=== PATIENT | female | born 1990 | race Caucasian/White ===

== ENCOUNTER 2019-08-30 10:36 | Outpatient (CLI) | payer BC, SELFPAY ==
--- NOTE | 2019-08-30 | US_ITS ---
WS: [id number] OBSTETRICAL ULTRASOUND COMPLETE HISTORY: SUPERVISION OF NORMAL IN SECOND TRIMESTER COMPARISON: None available. Single intrauterine gestation in breech presentation. Cervix is Closed and normal length. Cervical length is 5.1 cm. Normal amount of amniotic fluid surrounds the fetus. Placenta: Anterior, placenta very slightly covers the internal cervical os. Placenta grade 1 Heart: 151 BPM. Four chambers are identified. Anatomy: Intracranial structures and spine are normal. kidneys, stomach and urinary bladd er are unremarkable. Abdominal wall, three-vessel cord and cord insertion site are normal. 4 extremities are present. profile: Unremarkable. Gender: Female. measurements: BPD = 4.4 cm = 19w2d HC = 16.0 cm = 18w6d AC = 13.9 cm = 19w2d FL = 2.8 cm = 18w4d EFW: 269 g., Measurements are internally concordant. Visually the amount of amniotic fluid appears increased. AGA by ultrasound: 19 weeks 0 day ALBIN by ultrasound: 01/24/2020 US/US OB >= 14 weeks fetus [id number] IMPRESSION: 1. Single intrauterine gestation of 19 weeks 0 days with an EDC of 01/24/2020. 2. Unremarkable screening survey of anatomy. 3. Visually the amount of amniotic fluid is increased.
== END 2019-08-30 10:37 | disposition home or self-care (01) ==
LOC: RADWPI 13:23
PROVIDERS: Family Provider Family Medicine; Visit Provider Family Medicine
DX: Z76.89 Persons encountering health services in other specified circumstances (principal)

== ENCOUNTER 2020-01-23 07:35 | Inpatient (IN) | payer BC, SELFPAY ==
[2020-01-23] VITALS (68 sets, daily range): BP systolic 0–155; BP diastolic 0–88; PULSE 63–96; RESP 17; TEMP 36.9–37; O2SAT 94–100; BMI 26.5
[2020-01-23 08:30] LABS: Basophils # 0.1 10^3/uL (0.0-0.1); Basophils % 0.8 %; Eosinophils # 0.1 10^3/uL (0.0-0.8); Eosinophils % 1.1 %; Hematocrit 36.1 % (37.0-47.0); Hemoglobin 12.1 g/dL (11.5-15.3); Lymphocytes # 1.6 10^3/uL (0.8-4.8); Lymphocytes % 18.3 %; Mean Corpuscular HGB Conc 33.5 g/dL (30.0-36.0); Mean Corpuscular Hemoglobin 31.3 pg (28.0-34.0); Mean Corpuscular Volume 93.5 fL (81-99); Mean Platelet Volume 11.9 fL (7.4-10.4); Monocytes # 0.8 10^3/uL (0.2-0.9); Monocytes % 9.5 %; Neutrophils # 6.06 10^3/uL (1.8-7.7); Neutrophils % 69.3 %; Nucleated Red Blood Cells % 0 %; Platelet Count 190 10^3/cmm (130-400); Red Blood Count 3.86 10^6/uL (4.1-5.3); Red Cell Distribution Width 12.7 % (12.1-15.1); White Blood Count 8.8 10^3/uL (4.0-10.0)
[2020-01-23] MEDS: ampicillin 2,000 MG in sodium chloride 0.9% (plus) 50 ML 100 MG IV (08:32)
[2020-01-23] MEDS: dextrose 5%-lactated ringers 1,000 ML 125 ML IV (08:32)
[2020-01-23] MEDS: oxytocin 30 UNIT/500 ML BAG IV (09:02)
[2020-01-23] MEDS: lactated ringers 1,000 ML 999 ML IV ×2 (10:58→11:50)
[2020-01-23] MEDS: ondansetron 2 mg/ML SDV 2 mL 4 MG IVP (11:28)
[2020-01-23] MEDS: ampicillin 1,000 MG in sodium chloride 0.9% (plus) 50 ML 100 MG IV (12:01)
--- NOTE | 2020-01-23 12:02 | P.ANESASSM_ITS ---
Pre-Anesthetic Assessment Pre-Anesthetic Assessment: Height/Weight: Height 1.6 m Weight 68.039 kg Temp Pulse Resp BP Pulse Ox 98.5 F 80 17 144/74 97 01/23/20 11:06 01/23/20 12:00 01/23/20 11:06 01/23/20 12:00 01/23/20 12:01 Preop Diagnosis: Labor Pain Proposed Procedure: DILLAN Was Beta Lexy taken within 24 hours: N/A Last Intake: 05:00 Social: Social History: No alcohol and No tobacco Exam: Pre-Anes Outpt Exam: alert, oriented x 3, clear to auscultation bilaterally and regular rate & rhythm Airway: Submandibular: WNL Cervical ROM: WNL MP: 2 Dentition: Full History/ROS: No significant history except as noted and No significant complaints Pulmonary: Pulmonary: None reported CV/HEM: CV/HEM: None reported : : None reported Hepatic: Hepatic: None reported GI: GI: None reported Metabolic: Metabolic: None reported Musc/skel: Musc/skel: None reported Neuropsych: Neuropsych: None reported Anesthetic Plan: ASA status: 2 Anesthesia: Anesthesia Evaluation and Regional (specify below) Other: DILLAN Risk of > 500 ml blood loss (7ml/kg in children): No Meds/Allergies Current Medications: Current Medications Generic Name Dose Route Start Last Admin Trade Name Freq PRN Reason Stop Dose Admin Lactated Ringer's 1,000 mls @ 999 m ls/hr 01/23/20 08:07 01/23/20 11:50 Lactated Ringers IV 999 mls/hr .Q1H1M PRN Administration Per L&D Rescitati on Protocol Ampicillin Sodium 1,000 mg/ 50 mls @ 100 mls/ hr 01/23/20 12:11 01/23/20 12:01 Sodium Chloride IV 100 mls/hr Q4H PARAG Administration Protocol Ampicillin Sodium 2,000 mg/ 50 mls @ 100 mls/ hr 01/23/20 08:15 01/23/20 08:32 Sodium Chloride IV 100 mls/hr ONCE PARAG Administration Protocol Dextrose/Lactated Ringer's 1,000 mls @ 125 m ls/hr 01/23/20 08:15 01/23/20 10:54 Dextrose 5%-Lact ated Ringers IV 0 mls/hr .Q8H PARAG Infusion Oxytocin 30 unit in 500 ml s @ 1 mls/hr 01/23/20 08:45 01/23/20 11:30 Pitocin IV 0 milliunit/min .Q24H PARAG 0 mls/hr Titration Protocol 1 MILLIUNIT/MIN Ondansetron HCl 4 mg 01/23/20 08:07 01/23/20 11:28 Zofran IVP 4 mg Q4H PRN Administration NAUSEA AND VOMITI NG PFSH Anesthesia Female Reproductive History: : 4 Data Anesthesia CBC & Chem 7: 01/23/20 08:00 Other Labs: Laboratory Results - last 48 hr 01/23/20 08:00 WBC 8.8 RBC 3.86 L Hgb 12.1 Hct 36.1 L MCV 93.5 MCH 31.3 MCHC 33.5 RDW 12.7 Plt Count 190 MPV 11.9 H Neut % (Auto) 69.3 Lymph % (Auto) 18.3 [place] % (Auto) 9.5 Eos % (Auto) 1.1 Baso % (Auto) 0.8 Neut # (Auto) 6.06 Lymph # (Auto) 1.6 [place] # (Auto) 0.8 Eos # (Auto) 0.1 Baso # (Auto) 0.1 Nucleated RBC % (auto) 0 Nucleated RBCs # 0.0 Cardiac Studies: No Data to Display
--- NOTE | 2020-01-23 12:05 | ANES.PROC ---
Anesthesia Procedures Procedure/Date: 01/23/20 Epidural: Time Out Performed: Yes Consents Signed: Procedure Consent Consent: requested by attending/covering physician, from patient, risks and benefits reviewed and patient agrees to proceed Lumbar Level: L3-L4 Epidural position: sitting Epidural procedure: sterile prep of area, 1% lidocaine to numb the area, 18 g needle, neg for paresthesia, test dose given, 1.5% xylocaine 1:200k epi, 0.2% Ropivacaine bolus ml, placed PCEA, no systemic response, sterile dressing applied, L.U.D. no apparent complications and 0.2% Ropiavacaine @ mls/hr Additional Comments: [id number]/hour
--- NOTE | 2020-01-23 13:27 | PM.DELIVERY ---
Delivery Note: Date of delivery: January 23, 2020 Pre-delivery diagnoses: IUP at 39 weeks 5 days gestation GBS positive Post-delivery diagnoses: IUP at 39 weeks 5 days delivered via normal spontaneous vaginal delivery GBS positive, status post intrapartum antibiotic prophylaxis Delivering Physician: Georgina Leroy MD Estimated blood loss (mL): 300 Delivery: This is a 29-year-old who was admitted for induction at 39 weeks 5 days gestation. She chose elective induction secondary to being positive for GBS and a history of prior quick deliveries. She was given a dose of ampicillin prior to starting Pitocin. She had spontaneous rupture of membranes with clear fluid. She received a second dose of ampicillin prior to delivery. She had a normal spontaneous vaginal delivery of a viable female infant weight 8 pounds 15 ounces Apgars 9 and 10 over an intact perineum. The infant was suctioned at delivery and placed on the mother's chest. The cord was clamped and cut. The placenta was delivered grossly intact and normal to inspection. The patient had a second-degree perineal laceration. Additionally the patient had a quarter size cyst just inside the labia minora. This partially ruptured and partially drained upon delivery. There was semisolid white to milky exudate. The entire cystic capsule was excised prior to repair of her laceration. The laceration was then repaired using 3-0 chromic in a running fashion. Mother and were doing well after delivery. Coding Level of Care Code Acute [employer] Electrical Person for Bc Alvarado
[2020-01-23] MEDS: lanolin oint 7 gm 1 APPLIC TOPICAL (15:30)
[2020-01-23] MEDS: benzocaine-menthol 78 gm Canister 1 SPRAY TOPICAL (15:31)
[2020-01-23] MEDS: docusate sodium 100 mg Capsule PO (18:11)
[2020-01-24 02:23] LABS: Hematocrit 27.8 % (37.0-47.0); Hemoglobin 9.3 g/dL (11.5-15.3); Mean Corpuscular HGB Conc 33.5 g/dL (30.0-36.0); Mean Corpuscular Hemoglobin 32.2 pg (28.0-34.0); Mean Corpuscular Volume 96.2 fL (81-99); Mean Platelet Volume 11.3 fL (7.4-10.4); Platelet Count 165 10^3/cmm (130-400); Red Blood Count 2.89 10^6/uL (4.1-5.3); Red Cell Distribution Width 12.7 % (12.1-15.1); White Blood Count 12.1 10^3/uL (4.0-10.0)
[2020-01-24 05:34] VITALS: BP 103/62; PULSE 72; RESP 18; TEMP 36.9
[2020-01-24] MEDS: acetaminophen 325 mg Tablet 650 MG PO (06:30)
[2020-01-24] MEDS: docusate sodium 100 mg Capsule PO (08:30)
[2020-01-24] MEDS: prenatal vitamin Capsule 1 CAP PO (08:30)
[2020-01-24 10:27] VITALS: BP 109/71; PULSE 60; RESP 16; TEMP 36.9
[2020-01-24 16:56] VITALS: BP 124/75; PULSE 69; TEMP 36.9
--- NOTE | 2020-01-24 18:09 | P.DS_ITS ---
Discharge Providers VBA PROGRAMMER Date of Admission: 01/23/20 07:35 Date of Discharge: 01/24/20 Attending Provider at Admission: Georgina Leroy MD Attending Provider at Discharge: Georgina Leroy MD Diagnoses at Discharge Discharge Diagnosis (1) Spontaneous vaginal delivery: Status: Acute (2) Sebaceous cyst of labia: Status: Acute Problem details: Removed while patient's epidural was in place and prior to repair of second- degree perineal laceration. Reason for Visit Reason for Visit: term , induction of labor Hospital Course Discharge Summary: This is a 29-year-old G4 now P3 who was admitted for an induction secondary to GBS positive status. She was 39 weeks 5 days gestation. She had a normal spontaneous vaginal delivery of a viable female weight 8 pounds 15 ounces Apgars 9 and 10. Mother had a rather large labial sebaceous cyst that was excised immediately following delivery and prior to repair of her second-degree perineal laceration. Mother and infant did well after delivery. She was ambulating, tolerating a regular diet, had decreased vaginal bleeding and was requesting discharge home. Information Peripartum Data: Delivery Method: Vaginal Physical Exam Const: COMMON NORMALS: no acute distress and healthy appearing GENERAL APPEARANCE: cooperative and comfortable Chest: COMMONS NORMALS: normal inspection of the chest Resp: COMMON NORMALS: normal respiratory effort and clear to auscultation bilaterally; negative for No retractions and negative for No use of accessory muscles AUSCULTATION: clear to auscultation bilaterally Cardio: COMMON NORMALS: regular rate and regular rhythm RATE: regular rate RHYTHM: regular rhythm Extremity: COMMON NORMALS: no calf tenderness and no pedal edema Psych: COMMON NORMALS: mental status grossly normal Discharge Data Data Completed and Pending: Labs from last 24 hours 01/24/20 02:15 WBC 12.1 H RBC 2.89 L Hgb 9.3 L Hct 27.8 L MCV 96.2 MCH 32.2 MCHC 33.5 RDW 12.7 Plt Count 165 MPV 11.3 H Vitals: Last Vital Signs Temp 98.5 F 01/24/20 16:56 Pulse 69 01/24/20 16:56 Resp 16 01/24/20 10:27 BP 124/75 01/24/20 16:56 Pulse Ox 100 01/23/20 12:36 Discharge Plan Discharge Patient Disposition: Home, Self-Care Condition: Stable Prescriptions: Continued Vitamin 27 mg iron- 800 mcg Tablet 1 tab PO DAILY RF: 0 Discharge Orders: Discharge Order (Routine); Ordered 01/24/20 Ordered By: Georgina Leroy Referrals: Georgina Leroy MD [Family Provider] - 1 month (4 WEEKS) Discharge Diet: Usual diet Discharge Activity: Limit activity as instructed Patient Instructions: Your Baby (GEN), Expression, Collection and Storage of Breastmilk (GEN), How to Hold and Breastfeed Your Baby (GEN), Sadaf stfeeding and Nipple Soreness (GEN), Breast Fullness Versus Breast Engorgement (GEN), and Plugged Ducts (GEN), How to Increase Your Milk Supply (GEN), and Your Diet (GEN), Breast Care for the Breast Feeding Mother (GEN), Vaginal Delivery (GEN), OB Discharge Report, OB Food/Drug Interaction Guide Discharge Attestations VBA PROGRAMMER Time Spent in Discharge Care*: less than 30 min Coding Level of Care Code Acute Mixer Tender for Chg Fwd Diagnoses Spontaneous vaginal delivery O80 Sebaceous cyst of labia N90.7
[2020-01-24 18:31] VITALS: BP 114/71; PULSE 76; RESP 16; TEMP 36.7; O2SAT 96
== END 2020-01-24 18:55 | disposition home or self-care (01) | DRG 807 ==
PROVIDERS: Admitting Provider Family Medicine; Family Provider Family Medicine; Visit Provider Family Medicine
DX: O99.824 Streptococcus B carrier state complicating childbirth (principal); Z37.0 Single live birth; O70.1 Second degree perineal laceration during delivery; Z3A.39 39 weeks gestation of pregnancy; O34.83 Maternal care for other abnormalities of pelvic organs, third trimester; N94.89 Other specified conditions associated with female genital organs and menstrual cycle
CPT/HCPCS: 12345; 36415; 51702; 59025; 59409; 83986; 85025; 85027; 96374; 96375; J0290; J2405; J2795; J3010

== ENCOUNTER 2022-01-20 05:05 | Inpatient (IN) | payer BC, SELFPAY ==
[2022-01-20] VITALS (66 sets, daily range): BP systolic 103–138; BP diastolic 56–82; PULSE 58–94; RESP 16–18; TEMP 36.1–36.8; O2SAT 92–100; BMI 27.8
[2022-01-20 02:33] LABS: Basophils # 0.1 10^3/uL (0.0-0.1); Basophils % 0.7 %; Eosinophils # 0.1 10^3/uL (0.0-0.8); Eosinophils % 1.7 %; Hematocrit 34.6 % (37.0-47.0); Hemoglobin 12.3 g/dL (11.5-15.3); Lymphocytes # 1.5 10^3/uL (0.8-4.8); Lymphocytes % 18.2 %; Mean Corpuscular HGB Conc 35.5 g/dL (30.0-36.0); Mean Corpuscular Hemoglobin 31.9 pg (28.0-34.0); Mean Corpuscular Volume 89.6 fl (81-99); Mean Platelet Volume 11.6 fL (7.4-10.4); Monocytes # 0.8 10^3/uL (0.2-0.9); Monocytes % 10.1 %; Neutrophils # 5.65 10^3/uL (1.8-7.7); Neutrophils % 68.3 %; Nucleated Red Blood Cells % 0 %; Platelet Count 194 10^3/cmm (130-400); Red Blood Count 3.86 10^6/uL (4.1-5.3); Red Cell Distribution Width 12.6 % (12.1-15.1); White Blood Count 8.3 10^3/uL (4.0-10.0)
[2022-01-20] MEDS: lactated ringers 1,000 ML 999 ML IV (05:34)
[2022-01-20] MEDS: ondansetron 2 mg/ML SDV 2 mL 4 MG IVP (05:34)
[2022-01-20] MEDS: dextrose 5%-lactated ringers 1,000 ML 125 ML IV (06:33)
[2022-01-20] MEDS: oxytocin 30 UNIT/500 ML BAG 600 UNIT IV (07:39)
[2022-01-20] MEDS: docusate sodium 100 mg Capsule PO (09:41)
[2022-01-20] MEDS: benzocaine-menthol 78 gm Canister 1 SPRAY TOPICAL (09:41)
[2022-01-20] MEDS: ibuprofen 800 mg tablet PO ×3 (09:41→21:15)
[2022-01-20] MEDS: prenatal vitamin Capsule 1 CAP PO (09:41)
[2022-01-20] MEDS: lanolin oint 7 gm 1 APPLIC TOPICAL (09:41)
--- NOTE | 2022-01-20 09:45 | PC.NURSE ---
pt up to bathroom without difficulty. void 300mL. rich care performed by pt. gown and pad changed. linens changed. pt back to bed and resting comfortably
--- NOTE | 2022-01-20 17:16 | PM.OPHPUD ---
Labor & Delivery H&P Update Date of Procedure: January 20, 2022 Date H&P Performed: 01/16/22 Admission Diagnosis: Preop diagnosis: Labor Pain Planned procedure: expectant management
--- NOTE | 2022-01-20 17:46 | PM.DELIVERY ---
Delivery Note: Date of delivery: January 20, 2022 Pre-delivery diagnoses: IUP at 38-week 6 days gestation with spontaneous rupture of membranes Procedure: Normal spontaneous vaginal delivery Estimated blood loss (mL): 300 Pre-Delivery Course: The patient had routine care at [facility]. The was complicated by polyhydramnios. She is blood type a positive antibody negative, rubella immune, RPR nonreactive, hepatitis B surface antigen nonreactive, hepatitis C antibody nonreactive, HIV nonreactive, GC chlamydia negative, UDS negative, glucose tolerance test 131, GBS negative. Delivery: This is a 31-year-old G5, P3 at 38 weeks 6 days gestation who presented to labor and delivery with spontaneous rupture of membranes. She had a copious amount of clear fluid. She was noted to be GBS negative. She did receive an epidural for pain management. She had a normal spontaneous vaginal delivery of a viable male infant weight 7 pounds 15 ounces, Apgars 8 and 9 over an intact perineum. The was suctioned at delivery and placed on the mother's chest. The cord was clamped and cut. The placenta was delivered grossly intact and normal to inspection. There was a first-degree perineal laceration that was sutured using 3-0 chromic. Mother and were doing well after delivery. Coding Level of Care Code Acute [employer] Cord for Bc Alvarado
[2022-01-20 20:15] LABS: Hematocrit 30.8 % (37.0-47.0); Mean Corpuscular HGB Conc 35.7 g/dL (30.0-36.0); Mean Corpuscular Hemoglobin 32.2 pg (28.0-34.0); Mean Corpuscular Volume 90.1 fl (81-99); Mean Platelet Volume 11.5 fL (7.4-10.4); Platelet Count 178 10^3/cmm (130-400); Red Blood Count 3.42 10^6/uL (4.1-5.3); Red Cell Distribution Width 12.5 % (12.1-15.1); White Blood Count 13.1 10^3/uL (4.0-10.0)
[2022-01-21 05:19] VITALS: BP 124/70; PULSE 70; RESP 18
[2022-01-21] MEDS: docusate sodium 100 mg Capsule PO (08:22)
[2022-01-21] MEDS: ibuprofen 800 mg tablet PO (08:22)
[2022-01-21] MEDS: prenatal vitamin Capsule 1 CAP PO (08:22)
[2022-01-21] MEDS: lanolin oint 7 gm 1 APPLIC TOPICAL (08:22)
[2022-01-21 08:25] VITALS: BP 108/58; PULSE 65; RESP 16; TEMP 36.6; O2SAT 99
--- NOTE | 2022-01-21 12:58 | PM.DCS ---
Discharge Providers Date of Admission: 01/20/22 05:05 Date of Discharge: January 21, 2022 Attending Provider at Admission: Georgina Leroy MD Attending Provider at Discharge: Georgina Leroy MD Reason for Visit Reason for Visit: ROM @ 0045 Hospital Course Hospital Course This is a 31-year-old G5 now P4 who was admitted in active labor. She had a normal spontaneous vaginal delivery of a viable male . Mother and infant did well after delivery. On day #1 she was ambulating, tolerating a regular diet, had decreased vaginal bleeding and was requesting discharge home. Physical Exam Narrative: Alert and oriented, no acute distress, sitting in bedside couch, abdomen is soft and nontender, fundus is firm and U- 2, extremities have no calf tenderness and no edema. Urinary Catheter Management: Fong: Cath Placed During This Visit: yes, but has since been removed by the nurse Reason for Continuing Indwelling Catheter: Decision to DC Catheter Urinary Catheter Date of Insertion: 01/20/22 Urinary Catheter Time of Insertion: 06:45 Date Urinary Catheter Removed: 01/20/22 Time Urinary Catheter Discontinued: 07:30 Discharge Data Studies Completed and Pending Laboratory Results WBC 13.1 10^3/uL (4.0-10.0) H 01/20/22 19:55 RBC 3.42 10^6/uL (4.1-5.3) L 01/20/22 19:55 Hgb 11.0 g/dL (11.5-15.3) L 01/20/22 19:55 Hct 30.8 % (37.0-47.0) L 01/20/22 19:55 MCV 90.1 fl (81-99) 01/20/22 19:55 MCH 32.2 pg (28.0-34.0) 01/20/22 19:55 MCHC 35.7 g/dL (30.0-36.0) 01/20/22 19:55 RDW 12.5 % (12.1-15.1) 01/20/22 19:55 Plt Count 178 10^3/cmm (130-400) 01/20/22 19:55 MPV 11.5 fL (7.4-10.4) H 01/20/22 19:55 Neut % (Auto) 68.3 % 01/20/22 02:19 Lymph % (Auto) 18.2 % 01/20/22 02:19 [place] % (Auto) 10.1 % 01/20/22 02:19 Eos % (Auto) 1.7 % 01/20/22 02:19 Baso % (Auto) 0.7 % 01/20/22 02:19 Neut # (Auto) 5.65 10^3/uL (1.8-7.7) 01/20/22 02:19 Lymph # (Auto) 1.5 10^3/uL (0.8-4.8) 01/20/22 02:19 [place] # (Auto) 0.8 10^3/uL (0.2-0.9) 01/20/22 02:19 Eos # (Auto) 0.1 10^3/uL (0.0-0.8) 01/20/22 02:19 Baso # (Auto) 0.1 10^3/uL (0.0-0.1) 01/20/22 02:19 Nucleated RBC % (auto) 0 % 01/20/22 02:19 Nucleated RBCs # 0.0 /100WBC 01/20/22 02:19 Vitals Last Vital Signs Temp 97.8 F 01/21/22 08:25 Pulse 65 01/21/22 08:25 Resp 16 01/21/22 08:25 BP 108/58 01/21/22 08:25 Pulse Ox 99 01/21/22 08:25 Discharge Plan Discharge Patient Disposition: Home Condition: Stable Prescriptions: Continued Vitamin 27 mg iron- 800 mcg Tablet 1 tab PO DAILY 0RF Discharge Orders: Discharge Order (Routine); Ordered 01/21/22 Ordered By: Georgina Leroy Referrals: Georgina Leroy MD [Physician] - 1 month Discharge Diet: Usual diet Discharge Activity: Limit activity as instructed Patient Instructions: Depression (DC), Expression, Collection and Storage of Breast Milk (DC), Bleeding (DC), Preeclampsia and Eclampsia After Delivery (GEN), OB Discharge Report, OB Food/Drug Interaction Guide, Opioid Safety, OB Home Care, OB Vaginal Deliveries Activity Restrictions/Additional Instructions: Nothing per vagina for 6 weeks Discharge Attestations Time Spent in Discharge Care*: less than 30 min Quality Metrics Clinical Quality Measures [ No reported AMI, CVA or VTE this stay] Coding Level of Care Code Acute Chg FW DC note
[2022-01-21 15:30] VITALS: BP 128/78; PULSE 64; RESP 17; TEMP 36.8; O2SAT 98
[2022-01-21 15:45] VITALS: BP 128/78; PULSE 64; RESP 17; TEMP 36.8; O2SAT 98
== END 2022-01-21 15:45 | disposition home or self-care (01) | DRG 807 ==
LOC: OPOB 05:05 → OBGYN 05:05
PROVIDERS: Admitting Provider Family Medicine; Visit Provider Family Medicine
DX: O40.3XX0 Polyhydramnios, third trimester, not applicable or unspecified (principal); Z37.0 Single live birth; O70.0 First degree perineal laceration during delivery; Z87.891 Personal history of nicotine dependence; Z3A.38 38 weeks gestation of pregnancy
CPT/HCPCS: 36415; 51702; 59025; 59409; 83986; 85025; 85027; 96374; 99211; J2405; J2795

== ENCOUNTER 2023-06-29 09:20 | Emergency (ER) | payer BC, SELFPAY ==
[2023-06-29 09:28] VITALS: BP 147/88; PULSE 96; RESP 16; TEMP 36.8; O2SAT 100; BMI 22.6
--- NOTE | 2023-06-29 09:37 | ECG_ITS ---
[facility] Test Date: 2023-06-29 Pat Name: Audelia Arrieta Department: Room: Gender: Female Bus And Rail Operator: : 1990 Requested By: Cleveland Vera Order Number: [id number] Cornelio MD: Jefferson Veloz M.D. Measurements Intervals [place] Rate: 82 P: 66 KS: 131 QRS: 113 QRSD: 93 T: -4 QT: 346 QTc: 405 Interpretive Statements SINUS RHYTHM WITH OCCASIONAL VENTRICULAR PREMATURE COMPLEXES LEFT ATRIAL ENLARGEMENT [-0.15mV P-WAVE IN V1/V2] INDETERMINATE AXIS INCOMPLETE RIGHT BUNDLE BRANCH BLOCK [90+ ms QRS DURATION, TERMINAL R IN V1/V2, 40+ ms S IN I/aVL/V4/V5/V6] LEFT POSTERIOR FASCICULAR BLOCK [QRS AXIS > 109, INFERIOR Q] MODERATE ST DEPRESSION [0.05+ mV ST DEPRESSION] ABNORMAL QRS-T ANGLE [QRS-T AXIS DIFFERENCE > 60] No previous ECG available for comparison Electronically Signed On 06-29-2023 22:59:58 RN TRAVELING by Jefferson Veloz M.D. [id number]
--- NOTE | 2023-06-29 09:54 | ED_ITS ---
HPI - Arrhythmia/Palpitations 2 General: Chief Complaint: Arrhythmia/Palpitations Stated Complaint: heart palpitations Time Seen by Provider: 06/29/23 09:22 Source: patient Mode of arrival: ambulatory History of Present Illness: 33-year-old female palpitations for 1 wk . does not have any associated chest pain or shortness of breath. No known history of any previous cardiac issues no history of the any PEs or DVTs. Patient does not believe she is she has not recently been ill. MD complaint: skipped beats Onset (ago): week(s) (1) Duration: constant Severity: mild Associated symptoms: Deny anxiety, cough, diaphoresis, muscle cramps, nausea, paresthesias, pre-syncope, sense of impending doom, short of breath, syncope or vomiting Review of Systems 2 Const: Denies: fever(s), chills or diaphoresis Card: Reports: palpitations; Denies: chest pain, edema, swelling of feet/ankles, syncope or pre-syncope Resp: Denies: dyspnea GI: Denies: abdominal pain, nausea or vomiting : Reports: flank pain; Denies: dysuria, urinary frequency or urinary urgency Musc: Denies: neck pain, back pain or muscle cramps Skin/Breast: Denies: rash Psych: Denies: anxiety Physical Exam 2 Const: COMMON NORMALS: no acute distress GENERAL APPEARANCE: cooperative and comfortable ORIENTATION/CONSCIOUSNESS: Yes awake, Yes oriented to person, Yes oriented to place and Yes oriented to time HENMT: COMMON NORMALS: normocephalic, atraumatic and hearing grossly normal bilaterally HEAD & SCALP: normocephalic and atraumatic Resp: COMMON NORMALS: normal respiratory effort, No retractions, No use of accessory muscles and clear to auscultation bilaterally AUSCULTATION: clear to auscultation bilaterally Cardio: COMMON NORMALS: regular rate, regular rhythm and No murmurs present (Cardio) RATE: regular rate RHYTHM: regular rhythm GI: COMMON NORMALS: Soft to palpation and No hepatosplenomegaly present A USCULTATION: Yes normoactive bowel sounds PALPATION: Yes Soft to palpation, No Tenderness to palpation present (GI), No Guarding due to palpation present (GI) and Yes No hepatosplenomegaly present Extremity: COMMON NORMALS: normal to inspection, capillary refill normal, no clubbing, cyanosis or edema, no calf tenderness and no pedal edema Neuro: SENSORIUM/ORIENTATION: Yes oriented to person, Yes oriented to place and Yes oriented to time Skin: COMMON NORMALS: no rashes or lesions noted GENERAL SKIN EXAM: no rashes or lesions noted Course 2 Vital Signs: Vital signs: Vital Signs Temperature 98.2 F 06/29/23 09:28 Pulse Rate 66 06/29/23 10:32 Respiratory Rate 17 06/29/23 10:32 Blood Pressure 147/88 06/29/23 10:32 Pulse Oximetry 97 06/29/23 10:32 Oxygen Delivery Me thod Room Air 06/29/23 10:32 MDM - Arrhythmia/Palpitations Medical Decision Making EKG shows PVCs no other acute changes no acute ST changes patient not having any chest pain or discomfort at this time multiple PVCs noted on the monitoring. Blood pressure is also slightly elevated will start patient on Toprol XL 12.5 mg once daily follow-up with primary care doctor within the next week. Medical Records I reviewed the patient's medical records. Lab Data I reviewed the patient's lab results. 06/29/23 09:54 06/29/23 09:54 Laboratory Results WBC 6.42 10^3/uL (3.29-11.43) 06/29/23 09:54 RBC 4.32 10^6/uL (3.85-5.65) 06/29/23 09:54 Hgb 13.10 g/dL (11.27-16.99) 06/29/23 09:54 Hct 39.5 % (36-47) 06/29/23 09:54 MCV 91.4 fl (85-98) 06/29/23 09:54 MCH 30.3 pg (27-33) 06/29/23 09:54 MCHC 33.2 g/dL (30-55) 06/29/23 09:54 RDW 12.2 % (12.1-15.1) 06/29/23 09:54 Plt Count 271 10^3/cmm (157-399) 06/29/23 09:54 MPV 10.1 fL (7.4-10.4) 06/29/23 09:54 Neut % (Auto) 76.4 % 06/29/23 09:54 Lymph % (Auto) 15.3 % 06/29/23 09:54 [place] % (Auto) 6.5 % 06/29/23 09:54 Eos % (Auto) 0.6 % 06/29/23 09:54 Baso % (Auto) 0.9 % 06/29/23 09:54 Neut # (Auto) 4.90 10^3/uL (1.8-7.7) 06/29/23 09:54 Lymph # (Auto) 1.0 10^3/uL (0.8-4.8) 06/29/23 09:54 [place] # (Auto) 0.4 10^3/uL (0.2-0.9) 06/29/23 09:54 Eos # (Auto) 0.0 10^3/uL (0.0-0.8) 06/29/23 09:54 Baso # (Auto) 0.1 10^3/uL (0.0-0.1) 06/29/23 09:54 Nucleated RBC % (auto) 0 % 06/29/23 09:54 Nucleated RBCs # 0.0 /100WBC 06/29/23 09:54 Sodium 139 mmol/L (136-145) 06/29/23 09:54 Potassium 4.1 mmol/L (3.5-5.1) 06/29/23 09:54 Chloride 105 mmol/L (98-107) 06/29/23 09:54 Carbon Dioxide 22 mmol/L (22-29) 06/29/23 09:54 Anion Gap 16.1 (5-19) 06/29/23 09:54 BUN 8 mg/dL (6-20) 06/29/23 09:54 Creatinine 0.6 mg/dL (0.5-0.9) 06/29/23 09:54 GFR Calculation 114.4 mL/min (90-130) 06/29/23 09:54 Glucose 97 mg/dL (65-115) 06/29/23 09:54 Calculated Osmolality 286 mOsm/kg (285-295) 06/29/23 09:54 Calcium 9.2 mg/dL (8.5-10.5) 06/29/23 09:54 Total Bilirubin 0.8 mg/dL (0.15-1.2) 06/29/23 09:54 AST 15 U/L (0-32) 06/29/23 09:54 ALT 12 U/L (0-33) 06/29/23 09:54 Alkaline Phosphatase 54 U/L (35-105) 06/29/23 09:54 Total Protein 7.1 g/dL (6.6-8.7) 06/29/23 09:54 Albumin 4.4 g/dL (3.5-5.2) 06/29/23 09:54 Globulin 2.7 g/dL (1.3-4.6) 06/29/23 09:54 HCG, Qual Negative (Negative) 06/29/23 09:54 Urine Color Yellow (Yellow) 06/29/23 10:24 Urine Appearance Clear (CLEAR) 06/29/23 10:24 Urine pH 7 (5-7) 06/29/23 10:24 Ur Specific [place] 1.000 (1.005-1.030) L 06/29/23 10:24 Urine Protein Neg (Negative) 06/29/23 10:24 Urine Glucose (UA) Norm (Normal) 06/29/23 10:24 Urine Ketones Negative (Negative) 06/29/23 10:24 Urine Blood Neg (Negative) 06/29/23 10:24 Urine Nitrate Negative (Negative) 06/29/23 10:24 Urine Bilirubin Neg (Negative) 06/29/23 10:24 Urine Urobilinogen Neg mg/dL (Negative) 06/29/23 10:24 Ur Leukocyte Esterase Negative (Negative) 06/29/23 10:24 No radiology studies performed this visit Discharge Plan Discharge Patient Disposition: Home Clinical Impression: Ventricular premature beats, Hypertension Condition: Stable Prescriptions: New Toprol XL 25 mg tablet extended release 24 hr 12.5 mg PO DAILY Qty: 30 0RF No Action Vitamin 27 mg iron- 800 mcg Tablet 1 tab PO DAILY Discharge Orders: Discharge ED (Routine); Ordered 06/29/23 Ordered By: Cleveland Monterroso Referrals: Georgina Leroy MD [Primary Care Provider] - Discharge Diet: Usual diet Discharge Activity: Increase activity as tolerated Patient Instructions: Premature Ventricular Contractions (ED), Opioid Safety, Pain Management Activity Restrictions/Additional Instructions: Thank you for choosing [facility] for your healthcare needs today. Please realize this is an emergency room and that we are providing you with a medical screening exam and this may not be complete and all inclusive of all the testing and or work up that you may need to determine your ailment or severity of your illness. It is very important that you follow up as instructed or that you return to the Emergency Department should you have concerns or if your condition changes or worsens in any way. You are seen today for palpitations. Rhythm strip and EKG shows PVCs these are generally benign. Your blood pressure is also mildly elevated. Recommend to start Toprol-XL 12 and half milligrams once daily this will help cut down on the number of PVCs will also help control your blood pressure follow-up with primary care doctor within the next 2 weeks Coding Level of Care Code ED Manager Quantitative for cB Alvarado
[2023-06-29 10:01] LABS: Basophils # 0.1 10^3/uL (0.0-0.1); Basophils % 0.9 %; Eosinophils % 0.6 %; Hematocrit 39.5 % (36-47); Lymphocytes % 15.3 %; Mean Corpuscular HGB Conc 33.2 g/dL (30-55); Mean Corpuscular Hemoglobin 30.3 pg (27-33); Mean Corpuscular Volume 91.4 fl (85-98); Mean Platelet Volume 10.1 fL (7.4-10.4); Monocytes # 0.4 10^3/uL (0.2-0.9); Monocytes % 6.5 %; Neutrophils % 76.4 %; Nucleated Red Blood Cells % 0 %; Platelet Count 271 10^3/cmm (157-399); Red Blood Count 4.32 10^6/uL (3.85-5.65); Red Cell Distribution Width 12.2 % (12.1-15.1); White Blood Count 6.42 10^3/uL (3.29-11.43)
[2023-06-29 10:20] LABS: HCG, Serum Qual Negative (Negative)
[2023-06-29 10:23] LABS: Alanine Aminotransferase 12 U/L (0-33); Albumin Level 4.4 g/dL (3.5-5.2); Alkaline Phosphatase 54 U/L (35-105); Anion Gap 16.1 (5-19); Aspartate Amino Transferase 15 U/L (0-32); Blood Urea Nitrogen 8 mg/dL (6-20); Calcium 9.2 mg/dL (8.5-10.5); Carbon Dioxide 22 mmol/L (22-29); Chloride 105 mmol/L (98-107); Globulin 2.7 g/dL (1.3-4.6); Glomerular Filtration Rate 114.4 mL/min (90-130); Glucose 97 mg/dL (65-115); Osmolality Calculated 286 mOsm/kg (285-295); Potassium 4.1 mmol/L (3.5-5.1); Sodium 139 mmol/L (136-145); Total Bilirubin 0.8 mg/dL (0.15-1.2); Total Protein 7.1 g/dL (6.6-8.7)
[2023-06-29 10:32] VITALS: BP 147/88; PULSE 66; RESP 17; O2SAT 97
[2023-06-29 10:45] LABS: Add Urine Microscopic? NO; Charge for UA Resulting for Rev
[2023-06-29 10:47] LABS: Bilirubin Urine Neg (Negative); Blood Urine Neg (Negative); Glucose Urine UA Norm (Normal); Ketones Urine Negative (Negative); Leukocyte Esterase Urine Negative (Negative); Nitrate Urine Negative (Negative); Protein Urine Neg (Negative); Urine Appearance Clear (CLEAR); Urine Color Yellow (Yellow); Urobilinogen Urine Neg (Negative); pH Urine 7 (5-7)
[2023-06-29] MEDS: metoprolol succinate ER (24 HR) 25 mg Tablet 12.5 MG PO (11:05)
== END 2023-06-29 11:11 | disposition home or self-care (01) ==
PROVIDERS: Emergency Provider Family Medicine; PCP Family Medicine
DX: I49.3 Ventricular premature depolarization (principal); I10 Essential (primary) hypertension
CPT/HCPCS: 36415; 80053; 81003; 84703; 85025; 93005; 99285

== ENCOUNTER → 2023-09-16 12:55 | Outpatient (BNVA) | payer BC, SELFPAY | PROVIDERS: PCP Family Medicine; Referring Provider Family Medicine; Visit Provider Internal Medicine | DX: R07.9 Chest pain, unspecified (principal); I45.10 Unspecified right bundle-branch block; R00.1 Bradycardia, unspecified | CPT/HCPCS: 93005 ==

== ENCOUNTER 2023-09-23 08:43 | Outpatient (CLI) | payer BC, SELFPAY ==
--- NOTE | 2023-09-23 09:00 | USCV_ITS ---
Berny Audelia Age: 33 Gender: F : 1990 Exam Date: 09/23/2023 09:17 Ordering Phys: Jefferson Veloz M.D ([email or web address]) Technologist: [place] [facility] [place]: cp BP: 120 / 82 HR: 69 Rhythm: Sinus Technical Quality: Adequate MEASUREMENTS (Male / Female) Normal Values 2D ECHO LVOT Diameter 2.0 cm LV Ejection Fraction MOD 2C 53.1 % LV Ejection Fraction 2C AL 52.9 % LA Diameter 1.8 cm Aorta at Sinotubular Diameter 2.3 cm IVC Diameter 1.6 cm M-MODE LA Ao Ratio MM 1.2 AV Cusp Separation MM 1.7 cm DOPPLER AV Peak Velocity 115.0 cm/s LVOT Peak Velocity 86.0 cm/s AV Area Cont Eq vti 2.7 cm squared AV Area Cont Eq pk 2.3 cm squared MV Peak Velocity 95.0 cm/s MV Area PHT 3.0 cm squared Mitral E to A Ratio 1.9 TV Peak E Velocity 88.0 cm/s Right Atrial Pressure 3.0 mmHg PV Peak Velocity 101.0 cm/s FINDINGS Left Ventricle Left ventricle is normal in size. LV systolic function is borderline normal with EF of 50 to 55%. No regional wall motion abnormalities are seen. Right Ventricle Normal in size and function Right Atrium Normal in size Left Atrium Normal in size Mitral Valve Structurally normal mitral valve. Trace mitral regurgitation. Aortic Valve Structurally normal aortic valve. No significant stenosis Tricuspid Valve Mild tricuspid regurgitation. Insufficient TR jet to calculate RVSP. Pulmonic Valve Not well visualized Pericardium Normal Aorta Normal in size IVC Appears to be normal CONCLUSIONS LV systolic function is borderline normal with EF of 50-55% Trace mitral regurgitation Mild tricuspid regurgitation No comparison studies are available Jefferson Veloz MD (Electronically Signed) Final Date: 04 October 2023 12:05 S
== END 2023-09-23 08:44 | disposition home or self-care (01) ==
LOC: RAD 08:44
PROVIDERS: PCP Family Medicine; Visit Provider Internal Medicine
DX: I07.1 Rheumatic tricuspid insufficiency (principal); R07.9 Chest pain, unspecified
CPT/HCPCS: 93306

== ENCOUNTER 2024-12-20 09:25 | Outpatient (CLI) | payer BC, SELFPAY ==
--- NOTE | 2024-12-20 | MM_ITS ---
WS: [id number] BILATERAL 3D TOMOSYNTHESIS DIGITAL SCREENING MAMMOGRAM WITH CAD CLINICAL INFORMATION: ANNUAL SCREENING HISTORY: Screening mammogram. No current complaints. COMPARISON: 2016 TECHNIQUE: Bilateral CC and MLO. FINDINGS: The breast are composed of extremely dense tissue, which can limit the detection of small underlying mass lesions. No suspicious focal mass, asymmetry, calcifications, or architectural distortion. No evidence of malignancy. MM/MM scr tomosynthesis [id number] IMPRESSION: DENSITY: The breasts are extremely dense, which lowers the sensitivity of mammo graphy. BI-RADS: 1 - Negative FOLLOW UP: 1 Year Follow-up Recommend return to annual screening mammography.
== END 2024-12-20 09:26 | disposition home or self-care (01) ==
PROVIDERS: PCP Family Medicine; Visit Provider Family Medicine
DX: Z12.31 Encounter for screening mammogram for malignant neoplasm of breast (principal)
CPT/HCPCS: 77063; 77067